=== PATIENT | male | born 1940 ===

== ENCOUNTER → 2020-04-13 11:21 | Outpatient (REF) | payer MEDICARE, SELFPAY | LOC: ANHLAB 11:21 | PROVIDERS: Visit Provider Nurse Practitioner | DX: D49.2 Neoplasm of unspecified behavior of bone, soft tissue, and skin (principal) | CPT/HCPCS: 88305 ==

== ENCOUNTER → 2020-05-17 16:17 | Outpatient (REF) | payer MEDICARE, SELFPAY | LOC: ANHLAB 16:17 | PROVIDERS: PCP Internal Medicine Infectious Disease; Visit Provider Nurse Practitioner | DX: D49.2 Neoplasm of unspecified behavior of bone, soft tissue, and skin (principal) | CPT/HCPCS: 88305 ==